=== PATIENT | female | born 1975 | race Caucasian/White ===

== ENCOUNTER → 2016-07-23 | Outpatient (CLI) | payer OTHER ==
[~2016-07-23] MED LIST: CETI10 PO; FISH1000 PO; HYDR-2768 PO; HYDR25TA5 PO; LOTE20TA PO; MULTCAP PO; MULTTAB67 PO; NEUR100C PO; PANT40TA3 PO; VENL75TA PO
[2016-07-23 11:05] LABS: AUTOMATED NEUTROPHIL # 4.2 TH/MM3 (1.8-7.7); BASOPHIL # 0.1 TH/MM3 (0-0.2); BASOPHIL % 0.9 % (0.0-2.0); EOSINOPHIL # 0.2 TH/MM3 (0-0.4); HEMATOCRIT 40.9 % (35.0-46.0); HEMO FLAGS DIFF FINAL; LYMPH % 28.7 % (9.0-44.0); MEAN CELL VOLUME 93.5 FL (80.0-100.0); MEAN CORPUSCULAR HGB CONC 35.3 % (32.0-36.0); MONO % 8.3 % (0.0-8.0); NEUT % 59.1 % (16.0-70.0); PLATELET COUNT 212 TH/MM3 (150-450); RED BLOOD COUNT 4.38 MIL/MM3 (4.00-5.30); WHITE BLOOD COUNT 7.1 TH/MM3 (4.0-11.0)
[2016-07-23 11:32] LABS: ANION GAP 8 MEQ/L (5-15); BLOOD UREA NITROGEN 11 MG/DL (7-18); CHLORIDE 100 MEQ/L (98-107); GLOMERULAR FILTRATION RATE 75 ML/MIN (>89); GLUCOSE,FASTING 87 MG/DL (74-99); POTASSIUM 3.7 MEQ/L (3.5-5.1); SODIUM (NA) 139 MEQ/L (136-145)
[2016-07-23 11:37] LABS: BHCG SCREEN QUALITATIVE LESS THAN 1 MIU/ML (0-5)
[2016-07-23 12:28] LABS: BLOOD, URINE NEG (NEG); GLUCOSE,URINE NEG (NEG); KETONE, URINE NEG (NEG); NITRITE,URINE NEG (NEG); SQUAMOUS EPITHELIAL CELL URINE 4 /hpf (0-5); URINE COLOR YELLOW (YELLW/STRAW)
== END ==
LOC: CPRE 09:52
PROVIDERS: ATTEND Obstetrics & Gynecology
DX: Z01.812 Encounter for preprocedural laboratory examination (principal); R10.2 Pelvic and perineal pain
CPT/HCPCS: 36415; 80048; 81001; 84703; 85025

== ENCOUNTER 2016-07-31 05:39 | Observation (INO) | payer OTHER ==
[~2016-07-31] VITALS: Ht 154.9 cm; Wt 78.4 kg
[~2016-07-31 05:39] MED LIST changes: -CETI10 PO; -FISH1000 PO; -HYDR-2768 PO; -MULTCAP PO
[2016-07-31] MEDS ORDERED: LACTATED RINGER'S 1000 ML IV SCH (06:15)
[2016-07-31] MEDS ORDERED: SODIUM CHLORID 0.9% 500 ML IV SCH (06:15)
[2016-07-31] MEDS ORDERED: METOPROLOL TARTRATE 25 MG TAB PO PRN (06:15)
[2016-07-31] MEDS ORDERED: INSULIN HUMAN REGULAR 1,000 UNITS/10 ML VIAL SQ PRN (06:15)
[2016-07-31] MEDS ORDERED: APREPITANT 40 MG CAP PO PRN (06:30)
[2016-07-31] MEDS ORDERED: ceFAZolin 2 GM PREMIX 50 ML IV SCH (06:30)
[2016-07-31 06:42] VITALS: BP 123/81; PULSE 59; RESP 20; TEMP 97.6; O2SAT 97
[2016-07-31] MEDS ORDERED: METHYLENE BLUE 10 MG/ML VIAL ONE (07:09)
[2016-07-31] MEDS ORDERED: BUPIVACAINE HCL PF 0.25% 30 ML VIAL ONE (07:09)
[2016-07-31] MEDS ORDERED: ARTIFICIAL TEARS OPTH OINT 3.5 APPLIC/3.5 GM TUBO ONE (07:11)
[2016-07-31] MEDS ORDERED: ACETAMINOPHEN 1000 MG/100 ML VIAL IV ONE (07:11)
[2016-07-31] MEDS ORDERED: DICLOFENAC SODIUM 37.5 MG/ML VIAL IV PUSH ONE (07:11)
[2016-07-31] MEDS ORDERED: DEXAMETHASONE SOD PHOS 4 MG/ML VIAL ONE (07:15)
[2016-07-31] MEDS ORDERED: MIDAZOLAM HCL 2 MG/2 ML VIAL ONE (07:15)
[2016-07-31] MEDS ORDERED: FAMOTIDINE 20 MG/2 ML VIAL ONE (07:15)
[2016-07-31] MEDS ORDERED: NEOMYCIN/POLYMYXIN/BACITRACIN OINT 15 GM TUBE ONE (10:07)
[2016-07-31] MEDS ORDERED: LACTATED RINGER'S 1000 ML INJ 1,000 ML IV SCH (10:11)
[2016-07-31] MEDS ORDERED: ACETAMINOPHEN/HYDROcodone 325 MG/10 MG TAB PO PRN (10:15)
[2016-07-31] MEDS ORDERED: diphenhydrAMINE HCL 25 MG CAP PO PRN (10:15)
[2016-07-31] MEDS ORDERED: SODIUM CHLORIDE 0.9% FLUSH 5 ML FLUSH FLUSH SCH (10:15)
[2016-07-31] MEDS ORDERED: LORazepam 0.5 MG TAB PO PRN (10:15)
[2016-07-31] MEDS ORDERED: MEPERIDINE HCL 50 MG/ML VIAL IV PUSH PRN (10:15)
[2016-07-31] MEDS ORDERED: KETOROLAC TROMETHAMINE 30 MG/ML (IVP) VIAL IVP PRN (10:15)
[2016-07-31] MEDS ORDERED: SODIUM CHLORIDE 0.9% FLUSH 5 ML FLUSH FLUSH PRN (10:15)
[2016-07-31] MEDS ORDERED: PROMETHAZINE INJ 25 MG/ML VIAL IM PRN (10:15)
[2016-07-31] MEDS ORDERED: DO NOT ADM ANY ANTICOAGULANT DRUGS XX PRN (10:30)
[2016-07-31] MEDS ORDERED: fentaNYL CITRATE 250 MCG/5 ML AMP ONE (10:39)
[2016-07-31] MEDS ORDERED: PILL SPLITTER OTHER PRN (11:00)
[2016-07-31] MEDS ORDERED: *MEPERIDINE 25 MG INJ VIAL PERIprocedural Use ONLY ONE (11:28)
--- NOTE | 2016-07-31 12:32 | MP ---
cc: MENDOZA ERICKSON M.D., JOHN M. MD DATE OF SURGERY: 07/31/2016. PREOPERATIVE DIAGNOSIS Patient with history of chronic pelvic pain, endometriosis, pelvic adhesions, previous pelvic surgery. PROCEDURE Total laparoscopic hysterectomy with use of Da Manny robot, cystourethroscopy. POSTOPERATIVE DIAGNOSIS Patient with history of chronic pelvic pain, endometriosis, pelvic adhesions, previous pelvic surgery. SURGEON Mendoza Erickson MD ANESTHESIA General with endotracheal intubation. ESTIMATED BLOOD LOSS 100 ccs. DRAINS Neal to gravity. SURGICAL SPECIMEN Uterus complete with cervix. OPERATIVE FINDINGS The patient had an enlarged boggy uterus consistent with adenomyosis. The patient had previous endometrial ablation which was evident by the scar of the endometrial cavity during the placement of the V-Care device. INDICATION FOR PROCEDURE The patient with a long history of chronic pelvic pain and heavy bleeding, underwent minimally invasive procedures in the past to control her symptoms. The patient currently has had significant cyclic pelvic pain, documented endometriosis was known. The patient had completed childbearing and elected for definitive intervention with total hysterectomy. Ovaries were evaluated during the procedure and they were intact and normal in size and shape and devoid of any visible pathology. DESCRIPTION OF PROCEDURE The patient received Ancef 2 grams prophylactically prior to anesthesia. The patient underwent general anesthesia with endotracheal intubation. She was carefully positioned and padded appropriately in dorsolithotomy position using Yuniel stirrups on lower extremities. She had sequentials placed for VTE prophylaxis. After she was prepped and draped a time-out was conducted and agreed by all present in the room. The patient's procedure initiated by placing a Neal catheter under sterile technique with no significant findings. Cervix was identified, it was slightly enlarged and flush with the apex. A large V-Care device was utilized. Placement in the endometrial cavity required dissection midline to accommodate the placement of the balloon due to previous adhesions from the ablation. This was accomplished without difficulty. No active bleeding. The V-Care device was placed. Retractors were removed. Gloves were changed. The abdomen was examined. The patient had a previous abdominoplasty with large transverse scar and umbilical scar that was well healed. 0.25% plain Marcaine was used for all trocar sites. The umbilical port site was then injected first approximately 3-4 ccs. Small stab wound was made deep within the umbilicus and visible port trocar using a 5 mm trocar was placed directly into the peritoneal cavity without difficulty. Insufflation at low pressure was accomplished. The patient was then placed in steep Trendelenburg positioning and evaluation of the pelvic anatomy was made. There was some adhesions involving the omentum anteriorly, previous tubal ligation was made, the uterus was enlarged and boggy due to adenomyosis, it was previously known. The accessory ports were made using 8 mm trocars. The umbilical port was traded to a 12 mm port to accommodate the camera. Once the ports were placed Endoshears were introduced through the trocars to remove the filmy adhesions which were done using cold scissors with no active bleeding. Continuation of the case required placement of the da Manny patient cart side docked on the patient's right side, the #2 arm was placed on the left and #1 arm on the right. Monopolar scissors were placed in #2, bipolar fenestrated grasper was placed in #1. Good visualization and articulation was noted. Direction was placed to the surgeon cart where dissection initiated by dividing the round ligament on the left and opening the retroperitoneal space, identifying the ureter and then the infundibulopelvic vessels and then the left ovary was normal size and shape. The dissection was accomplished the uterine ovarian pedicle allowing dissection of the uterine artery and vein on the left side which was made hemostatic using a combination of monopolar and bipolar cautery. The contralateral side was dissected in the same fashion with good result. Both ureters were easily identified and peristalsing normally. Once the dissection was complete, allowing separation and isolation of the uterine artery and vessels, the colpotomy incision was made allowing removal of the cervix intact with the uterus. The uterine specimen was removed through the vaginal opening by the bilingual executive assistant without difficulty. A #1 Stratafix suture was introduced and used to close the vaginal cuff using a suture cut needle fork truck driver in the #2 arm. Good hemostasis was noted. The cuff was closed with good integrity. The integrity was tested by using a sponge stick placed by the bilingual executive assistant transvaginally to demonstrate the closure of the cuff. At the completion of the cuff closure the suture needles were trimmed. Attention was directed to straight laparoscopy where the da Manny patient cart was undocked. Suture needles were retrieved. Full count was made and correct. Pelvis was irrigated with copious normal saline. A small amount of oozing was noted over the central portion of the cuff. Ethicon snow was then applied as a hemostatic agent over the midline portion of the cuff with good result. Observation off pressure for several minutes revealed no active bleeding or hematoma. After completion of the closure and confirmation of hemostasis, the umbilical port was closed with a crossbow device using a #1 Vicryl suture closing the fascia with a simple interrupted suture. The pneumoperitoneum was then completely decompressed through the trocars. The trocars were removed intact with no active bleeding. The skin incisions were closed with subcuticular stitch of 4-0 Monocryl. Steri-Strips were placed over the lateral incisions. The umbilical port appeared to be slightly irritated and decision was to close the skin incision with interrupted suture of 4-0 Monocryl and then apply triple antibiotic ointment with a loose dressing to be changed daily. The cystourethroscopy was performed after backfilling the bladder with approximately 250 ccs of normal saline. Examination was used using the straight 5 mm laparoscope under direct vision, placement into the urethral meatus was uncomplicated, after removal of the Neal, the bladder was intact. There was no interruption, no laceration of suture placement. Both ureteral orifices were peristalsing normally jetting clear urine into the bladder. At the completion of this, cystourethroscopy was followed by replacement of the Neal catheter and the patient was extubated and full and final count was correct. She was taken to the recovery room on room air. MD JOSE ELIAS Stovall/MAKENNA /10:21 AM /12:03 PM
[2016-07-31] MEDS ORDERED: NEOSTIGMINE 3 MG/3 ML SYR IV ONE (13:06)
[2016-07-31] MEDS ORDERED: PROPOFOL 200 MG/20 ML AMP IV ONE (13:06)
[2016-07-31] MEDS ORDERED: PHENYLEPH/NS 1000 MCG/10 ML SYR IV ONE (13:06)
[2016-07-31] MEDS ORDERED: ONDANSETRON HCL 4 MG/2 ML VIAL IV PUSH ONE (13:06)
[2016-07-31] MEDS ORDERED: NORMOSOL R INJ 2,000 ML IV ONE (13:06)
[2016-07-31 13:10] VITALS: BP 113/68; PULSE 77; TEMP 98.1
[2016-07-31] MEDS: ONDANSETRON HCL 4 MG/2 ML VIAL IVP PRN ×2 (13:15→20:56)
[2016-07-31 18:25] VITALS: BP 100/63; PULSE 93; RESP 16; TEMP 98.6
[2016-07-31 19:30] VITALS: BP 130/80; PULSE 90; RESP 18; TEMP 98.8
[2016-07-31] MEDS: ACETAMINOPHEN/HYDROcodone 325 MG/5 MG TAB PO PRN (20:57)
[2016-07-31] MEDS: DOCUSATE SODIUM 100 MG CAP PO SCH (20:58)
[2016-08-01] VITALS: BP 150/100; PULSE 65; RESP 18; TEMP 98; O2SAT 98
[2016-08-01] MEDS: ACETAMINOPHEN/HYDROcodone 325 MG/5 MG TAB PO PRN (02:26)
[2016-08-01] MEDS: IBUPROFEN 600 MG TAB PO PRN ×2 (02:26→09:25)
[2016-08-01 04:00] VITALS: BP 115/69; PULSE 62; RESP 18; TEMP 98.1; O2SAT 97
[2016-08-01 07:45] VITALS: BP 124/72; PULSE 52; RESP 17; TEMP 97.9
--- NOTE | 2016-08-01 08:00 | HHI.PR ---
Subjective Remarks Doing well, pain is well controlled, eating well. Objective Vital Signs Vital Signs Date Time Temp Pulse Resp B/P Pulse Ox O2 Delivery O2 Flow Rate FiO2 08/01/16 04:00 98.1 62 18 115/69 97 08/01/16 00:00 98.0 65 18 150/100 98 07/31/16 19:30 98.8 90 18 130/80 07/31/16 18:25 98.6 93 16 100/63 07/31/16 13:10 98.1 77 113/68 07/31/16 12:30 97.6 85 16 102/65 95 Room Air 07/31/16 12:15 85 16 100/62 94 Room Air 07/31/16 12:00 84 16 102/64 94 Room Air 07/31/16 11:45 86 15 103/63 93 Room Air 07/31/16 11:30 87 15 108/62 93 Room Air 07/31/16 11:15 88 15 110/66 93 Room Air 07/31/16 11:00 91 15 106/62 94 Room Air 07/31/16 10:45 89 14 105/56 100 Nasal Cannula 4 07/31/16 10:30 98.7 86 14 101/55 98 Nasal Cannula 4 I/O 07/31/16 07/31/16 07/31/16 08/01/16 08/01/16 08/01/16 07:00 15:00 23:00 07:00 15:00 23:00 Intake Total 1750 ml Output Total 700 ml 400 ml 200 ml Balance 1050 ml -400 ml -200 ml Intake IV Total 250 ml Other 1500 ml Output Urine Total 600 ml 400 ml 200 ml Estimated Blood Loss 100 ml Objective Remarks Chest is clear, regular rate and rhythm. Abdomen is soft and non-distended. Incisions are clean and dry. Ext no CCE. A/P Assessment and Plan Post Op Day 1 Doing well Home today and return to office in two weeks to see Dr Galo. Suze Ingram MD Aug 01, 2016 08:00
--- NOTE | 2016-08-01 08:03 | HHI.DCPOC ---
Discharge Care Plan Your Health Problems Are: Pelvic pain Report Symptoms to Your Doctor -Temperate above 100.5 degrees -Redness, of incision or excessive or foul smelling drainage -Unusual pain or calf pain -Increased vaginal bleeding -Painful or difficulty urinating -Feelings of extreme sadness or anxiety after 2 weeks Goals to Promote Your Health * To prevent worsening of your condition and complications * To maintain your health at the optimal level Directions to Meet Your Goals Take your medications as prescribed Follow your dietary instruction Follow activity as directed Ensure plenty of rest for recovery Drink fluids for hydration Keep your appointments as scheduled Take your immunizations and boosters as scheduled If your symptoms worsen call your PCP, if no PCP go to Urgent Care Center or Emergency Room Smoking is Dangerous to Your Health. Avoid second hand smoke Call the 24-hour crisis hotline for domestic abuse at Suze Ingram MD Aug 01, 2016 08:03
[2016-08-01] MEDS: DOCUSATE SODIUM 100 MG CAP PO SCH (09:25)
== END 2016-08-01 09:45 | disposition home or self-care (01) ==
LOC: HSDC 05:39 → HSDI 13:10 → H1EA 13:11
PROVIDERS: ADMIT Obstetrics & Gynecology; ATTEND Obstetrics & Gynecology
DX: N80.0 Endometriosis of uterus (principal); R10.2 Pelvic and perineal pain; N73.6 Female pelvic peritoneal adhesions (postinfective); I10 Essential (primary) hypertension
CPT/HCPCS: 00840; 58570; 86850; 86900; 86901; 88307; 94150; G0378; J0131; J0690; J1100; J1130; J1885; J2175; J2250; J2370; J2405; J2710; J3010; J7120; J8501